=== PATIENT | male | born 1985 ===

== ENCOUNTER 2017-01-19 15:56 | Emergency (ER) | payer OTHER ==
[2017-01-19] MEDS ORDERED: Sodium Chloride 0.9% 1,000 ML IV SCH (17:15)
--- NOTE | 2017-01-19 17:30 | ED PDOC ---
HPI: Abdomen History Per: Patient (31 y male presents to ED complaining of abdominal pain for the past 3 weeks. Pt localizes pain to the epigastric region with radiation to the back, RUQ and often times lower quadrants. He reports that the pain occurs within minutes after eating and is associated with a sensation of fullness and [place]. He has had 2 episodes of non bloody non billous vomiting. He saw hs PMD 2 days ago and was given Famitidine that does not relieve his symptoms. Additionally he states, he has felt constipated. He denies: Fever, chills, anorexia, change in stool caliber, diarrhea, dysuria, frequency of urination, or back pain. ) Outside of [place] travel?: No <Ben Canchola - Last Filed: 01/19/17 18:57> <Teresita Ceballos - Last Filed: 01/19/17 19:07> Time Seen by Provider: 01/19/17 16:14 Chief Complaint (Nursing): Abdominal Pain Supervising Attending Note - Supervising Attending Note The Documented history was done by the: Physician Television Journalist The documented physical exam was done by the: Physician Television Journalist The documented procedures were done by the: Physician Television Journalist - Attestation: I have personally seen and examined this patient.: Yes I have fully participated in the care of the patient.: Yes I have reviewed all pertinent clinical information: Yes <Teresita Ceballos - Last Filed: 01/19/17 19:07> Past Medical History Reviewed: Historical Data, Nursing Documentation, Vital Signs - Medical History PMH: HTN Denies: Gastrointestinal Ulcer, Gall Bladder Disease, GERD - Surgical History Surgical History: No Surg Hx - Family History Family History: States: No Known Family Hx Other Family History: Uncle as DM; No Hx of Inflammatory Bowel Disease, Cancers , or Gallbladder disease - Living Arrangements Living Arrangements: With Family - Social History Current smoker - smoking cessation education provided: No Alcohol: None Drugs: Denies <Ben Canchola - Last Filed: 01/19/17 18:57> <Teresita Ceballos - Last Filed: 01/19/17 19:07> Vital Signs: Last Vital Signs Temp 97.7 F 01/19/17 15:59 Pulse 68 01/19/17 15:59 Resp 16 01/19/17 15:59 BP 137/83 01/19/17 15:59 Pulse Ox 99 01/19/17 18:58 - Allergies Allergies/Adverse Reactions: Allergies Allergy/AdvReac Type Severity Reaction Status Date / Time No Known Allergies Allergy Verified 01/19/17 15:59 Review of Systems ROS Statement: Except As Marked, All Systems Reviewed And Found Negative Constitutional: Negative for: Fever, Chills, Weight loss ENT: Negative for: Throat Pain Cardiovascular: Negative for: Chest Pain Respiratory: Negative for: Cough, Shortness of Breath Gastrointestinal: Positive for: Nausea, Vomiting, Abdominal Pain, Constipation. Negative for: Diarrhea, Melena, Hematochezia, Hematemesis Genitourinary Male: Positive for: Other (Tea-Colored urine). Negative for: Dysuria, Frequency, Incontinence Musculoskeletal: Negative for: Back Pain <Ben Canchola - Last Filed: 01/19/17 18:57> Physical Exam - Reviewed Nursing Documentation Reviewed: Yes Vital Signs Reviewed: Yes - Physical Exam Appears: Positive for: Well, Non-toxic, No Acute Distress Head Exam: Positive for: ATRAUMATIC, NORMAL INSPECTION, NORMOCEPHALIC Skin: Positive for: Normal Color, Warm, DRY Eye Exam: Positive for: EOMI, Normal appearance, PERRL ENT: Positive for: Normal ENT Inspection Neck: Positive for: Normal, Painless ROM Cardiovascular/Chest: Positive for: Regular Rate, Rhythm Respiratory: Positive for: CNT, Normal Breath Sounds Gastrointestinal/Abdominal: Positive for: Normal Exam, Bowel Sounds, Soft, Tenderness (Moderate tenderness to palpation in Epigastric and RUQ. Mild tenderness to palpation in lower quadrants. ), Other (Armenta's negative). Negative for: Organomegaly, Mass, Distended, Guarding, Rebound, Hernia Back: Positive for: Normal Inspection Extremity: Positive for: Normal ROM Neurologic/Psych: Positive for: Alert, Oriented <Ben Canchola - Last Filed: 01/19/17 18:57> - Laboratory Results Result Diagrams: 01/19/17 17:42 01/19/17 17:42 - ECG O2 Sat by Pulse Oximetry: 99 - Progress Re-evaluation Time: 18:24 (Pt seen lying in bed comfortably. No complaints) Condition: Re-examined <Ben Canchola - Last Filed: 01/19/17 18:57> - Laboratory Results Result Diagrams: 01/19/17 17:42 01/19/17 17:42 <Teresita Ceballos - Last Filed: 01/19/17 19:07> Medical Decision Making <Ben Canchola - Last Filed: 01/19/17 18:57> <Teresita Ceballos - Last Filed: 01/19/17 19:07> Medical Decision Makin y male with PMHx of HTN presents to ED complaining of a 3 week history of abdominal pain. ED Course: Famotidine 20mg IV x1 NS 100ml CBC, CMP, Lipase- NML ASO- ordered ESR UA RUQ US- increased echogenicity suggestive of hepatic steatosis (Ben Canchola) Disposition - Disposition Disposition: Routine/Home Disposition Time: 18:58 <Ben Canchola - Last Filed: 01/19/17 18:57> <Teresita Ceballos - Last Filed: 01/19/17 19:07> - Clinical Impression Clinical Impression: Gastritis - Disposition Referrals: Conner Nogueira MD [Medical Doctor] - Condition: STABLE Additional Instructions: continue with medicine prescribed by your doctor. Instructions: Gastritis (ED) Forms: [facility] (Telugu) Print Language: BENGALI
--- NOTE | 2017-01-19 17:41 | US ---
HISTORY: ruq tenderness ?murphys COMPARISON: None. TECHNIQUE: Sonographic evaluation of the abdomen. FINDINGS: LIVER: Measures 12.5 cm. There is diffuse increased echogenicity with heterogeneous echotexture of the liver parenchyma. No mass. No intrahepatic bile duct dilatation. GALLBLADDER: No gallstones, wall thickening or pericholecystic fluid. The sonographic Armenta's sign is negative. COMMON BILE DUCT: Measures 2.4 mm. No stones. No dilatation. PANCREAS: Unremarkable as visualized. No mass. No ductal dilatation. RIGHT KIDNEY: Measures 11.4cm. Normal echogenicity. No calculus, mass, or hydronephrosis. LEFT KIDNEY: Measures 10.1cm. Normal echogenicity. No calculus, mass, or hydronephrosis. SPLEEN: Normal in size and contour. No mass. AORTA: No aneurysmal dilatation. IVC: Unremarkable. OTHER FINDINGS: None. IMPRESSION: 1. Diffuse increased echogenicity in the liver may reflect hepatic steatosis however parenchymal infectious/ inflammatory etiologies cannot be entirely excluded. Clinical and laboratory correlation is advised. 2. No cholelithiasis or biliary dilatation.
[2017-01-19 17:48] LABS: BASO % 0.3 % (0.0-2.0); EOS # 0.2 K/uL (0.0-0.7); EOS % 3.3 % (0.0-4.0); HEMATOCRIT 46.3 % (35.0-51.0); LYMPH # 1.8 K/uL (1.0-4.3); LYMPH % 24.9 % (20.0-40.0); MEAN CELL VOLUME 83.3 fl (80.0-94.0); MEAN CORPUSCULAR HEMOGLOBIN 27.6 pg (27.0-31.0); MEAN CORPUSCULAR HGB CONC 33.2 g/dL (33.0-37.0); MEAN PLATELET VOLUME 10.2 fl (7.2-11.7); MONO # 0.6 K/uL (0.0-0.8); MONO % 7.8 % (0.0-10.0); NEUT # 4.5 K/uL (1.8-7.0); NEUT % 63.7 % (50.0-75.0); NRBC % 0.1 % (0.0-0.0); RED CELL DISTRIBUTION WIDTH 13.4 % (11.5-14.5); WHITE BLOOD COUNT 7.1 K/uL (4.8-10.8)
[2017-01-19 18:02] LABS: ALB/GLOB RATIO 1.3 (1.0-2.1); ALKALINE PHOSPHATASE 64 U/L (38-126); ALT/SGPT 34 U/L (21-72); AST/SGOT 28 U/L (17-59); BILIRUBIN,TOTAL 1.4 mg/dl (0.2-1.3); BLOOD UREA NITROGEN 19 mg/dl (9-20); CALCIUM 9.8 mg/dL (8.4-10.2); CARBON DIOXIDE 26 mmol/L (22-30); CHLORIDE 104 mmol/L (98-107); GFR AFRICAN-AMERICAN > 60; GLUCOSE,RANDOM 114 mg/dL (75-110); LIPASE 119 U/L (23-300); RBC URINE 3 /hpf (0-3); SODIUM 142 mmol/l (132-148); TOTAL PROTEIN 8.7 G/DL (6.3-8.2); URINE BACTERIA RARE (<OCC); URINE BILIRUBIN NEGATIVE (NEGATIVE); URINE BLOOD NEGATIVE (NEGATIVE); URINE COLOR YELLOW (YELLOW); URINE GLUCOSE (UA) NEG (Normal); URINE KETONE NEGATIVE (NEGATIVE); URINE LEUKOCYTE ESTERASE NEG Leu/uL (Negative); URINE PROTEIN NEGATIVE (NEGATIVE); WBC URINE 1 /hpf (0-5)
[2017-01-19 19:13] VITALS: BP 122/73; PULSE 80; RESP 20; TEMP 98.3; O2SAT 98
[2017-01-20 14:39] LABS: ASO TITER =>200 IU/ML (NEGATIVE)
== END 2017-01-19 19:13 | disposition home or self-care (01) ==
LOC: H.ER 15:56
DX: K29.70 Gastritis, unspecified, without bleeding (principal); I10 Essential (primary) hypertension
CPT/HCPCS: 76700; 80053; 81003; 83690; 85025; 85651; 86060; 96374; 99283; J7040

== ENCOUNTER 2017-01-26 18:15 | Observation (INO) | payer OTHER ==
[2017-01-26 18:47] VITALS: BP 136/81; PULSE 67; RESP 18; TEMP 98.2; O2SAT 99
[2017-01-26] MEDS ORDERED: Iohexol 240 (50 ml) PO ONE (19:14)
[2017-01-26] MEDS ORDERED: DiphenhydrAMINE 50 mg/ml Inj IVP STA (19:15)
[2017-01-26] MEDS ORDERED: DiphenhydrAMINE 50 mg/ml Inj ONE (19:29)
[2017-01-26] MEDS ORDERED: Iohexol 240 (50 ml) ONE (19:29)
--- NOTE | 2017-01-26 19:43 | ED PDOC ---
HPI: Abdomen Time Seen by Provider: 01/26/17 19:05 Chief Complaint (Nursing): Abdominal Pain Chief Complaint (Provider): Continued Abdominal Pain and New Rash History Per: Patient History/Exam Limitations: no limitations Outside of [place] travel?: No Current Symptoms Are (Timing): Still Present Additional Complaint(s): Jasmyn Sellers, a 31 year old male presents to the ED complaining of continued abdominal pain and a new rash. The patient states that he saw his PMD and was prescribed pepsid and he was also seen here in the ED but he still has occasional cramps in his lower abdomen. Patient does note some nausea but denies vomiting. He also complains of feeling weak and tired and states he aslo developed a rash but it is not itching. Denies fevers, chills, weight loss, changes in bowel/urinary habits. Past Medical History Reviewed: Historical Data, Nursing Documentation, Vital Signs Vital Signs: Last Vital Signs Temp 98.2 F 01/26/17 18:45 Pulse 67 01/26/17 18:45 Resp 18 01/26/17 18:45 BP 136/81 01/26/17 18:45 Pulse Ox 99 01/26/17 23:17 - Medical History PMH: HTN Denies: Gastrointestinal Ulcer, Gall Bladder Disease, GERD - Surgical History Surgical History: No Surg Hx - Family History Family History: States: Unknown Family Hx - Home Medications Home Medications: Ambulatory Orders Medication Instructions Recorded Ciprofloxacin [Cipro] 500 mg PO BID 7 Days 01/26/17 metroNIDAZOLE [Flagyl] 500 mg PO BID 7 Days 01/26/17 - Allergies Allergies/Adverse Reactions: Allergies Allergy/AdvReac Type Severity Reaction Status Date / Time No Known Allergies Allergy Verified 01/19/17 15:59 Review of Systems ROS Statement: Except As Marked, All Systems Reviewed And Found Negative Constitutional: Negative for: Fever, Chills, Weight loss Gastrointestinal: Positive for: Abdominal Pain Genitourinary Male: Negative for: Incontinence (urine/bladder) Skin: Positive for: Rash Physical Exam - Reviewed Nursing Documentation Reviewed: Yes Vital Signs Reviewed: Yes - Physical Exam Appears: Positive for: Non-toxic, No Acute Distress Head Exam: Positive for: ATRAUMATIC, NORMAL INSPECTION, NORMOCEPHALIC Skin: Positive for: Normal Color, Warm, Dry Eye Exam: Positive for: Normal appearance, EOMI, PERRL. Negative for: Nystagmus Neck: Positive for: Normal, Painless ROM, Supple Cardiovascular/Chest: Positive for: Regular Rate, Rhythm, Chest Non Tender. Negative for: Tachycardia Respiratory: Positive for: Normal Breath Sounds. Negative for: Rales, Rhonchi, Wheezing, Respiratory Distress Gastrointestinal/Abdominal: Positive for: Normal Exam, Bowel Sounds, Soft, Tenderness (epigastrium an suprapubic region mildly tender to palpation), Other (blanching erythematous patch across abdomen). Negative for: Guarding, Rebound Back: Positive for: Normal Inspection. Negative for: L CVA Tenderness, R CVA Tenderness Extremity: Positive for: Normal ROM. Negative for: Tenderness, Deformity, Swelling Neurologic/Psych: Positive for: Alert, Oriented, Gait - Laboratory Results Result Diagrams: 01/26/17 20:06 01/26/17 20:06 - ECG O2 Sat by Pulse Oximetry: 99 (RA) Pulse Ox Interpretation: Normal Medical Decision Making Medical Decision Makin initial Impression: Diverticulitis vs gastritis vs other abdominal pathologies Initial Plan: * CT ABD&PELV PO and IV Contrast * BMP * Lipase * LFT * CBC * Benadryl 50mg * Omnipaque 50ml PO * Zofran * Urine Culture * Urinalysis * Reevaluation Of note: Chart reviewed patient has positive ASO but there is no concerned for glomeruar nephritis at this time. Time: 2241 --CT ABD/pelvis FINDINGS: Lower thorax: The bilateral lung bases are clear. ABDOMEN: Liver: No acute findings. Gallbladder and bile ducts: The gallbladder is minimally distended, without calcified stones. No significant intra- or extrahepatic biliary ductal dilation. Pancreas: Enhances homogeneously. No ductal dilation. No discrete mass. Spleen: No acute findings. Adrenals: No acute findings. Kidneys and ureters: No acute findings. No hydronephrosis or renal calculi. No discrete solid mass. PELVIS: Bladder: No acute findings. Reproductive: No acute findings. Appendix: The air filled appendix is of normal caliber (series 3, image 74; series 601, image 56) . ABDOMEN and PELVIS: Stomach and bowel: Oral contrast extends to the distal small bowel, without obstruction. Small bowel wall thickening within the left upper quadrant but no surrounding inflammation or fluid to confirm an acute enteritis. Peritoneum: As above. Lymph nodes: No pathologically enlarged lymph nodes. Vasculature: Unremarkable. Bones: No acute fracture. IMPRESSION: Mural thickening within multiple loops of small bowel without surrounding inflammation or fluid to confirm an acute enteritis. Time: 2300 Upon provider reevaluation patient is medically stable and requires no further treatment in the ED at this time. Patient will be discharged home. Counseling was provided and all questions were answered regarding diagnosis and need for follow up with PCP. There is agreement to discharge plan. Return if symptoms persist or worsen. Clinical Impression: Enteritis __ Scribe Attestation Documented by Meghna Farnsworth acting as a scribe for Karly Garrett MD. Provider Attestation All medical record entries made by the Scribe were at my direction and personally dictated by me. I have reviewed the chart and agree that the record accurately reflects my personal performance of the history, physical exam, medical decision making, and the department course for this patient. I have also personally directed, reviewed, and agree with the discharge instructions and disposition. Disposition - Clinical Impression Clinical Impression: Enteritis - Patient ED Disposition Is Patient to be Admitted: No Counseled Patient/Family Regarding: Studies Performed, Diagnosis - Disposition Disposition: Routine/Home Disposition Time: 23:00 Condition: STABLE
[2017-01-26 20:19] LABS: BASO % 0.1 % (0.0-2.0); EOS % 0.1 % (0.0-4.0); LYMPH # 0.6 K/uL (1.0-4.3); LYMPH % 5.9 % (20.0-40.0); MEAN CELL VOLUME 82.9 fl (80.0-94.0); MEAN CORPUSCULAR HEMOGLOBIN 27.1 pg (27.0-31.0); MEAN CORPUSCULAR HGB CONC 32.7 g/dL (33.0-37.0); MEAN PLATELET VOLUME 10.5 fl (7.2-11.7); MONO # 0.1 K/uL (0.0-0.8); MONO % 1.1 % (0.0-10.0); NEUT # 10.1 K/uL (1.8-7.0); NEUT % 92.8 % (50.0-75.0); NRBC % 0.3 % (0.0-0.0); PLATELET COUNT 191 K/uL (130-400); RED CELL DISTRIBUTION WIDTH 13.2 % (11.5-14.5); WHITE BLOOD COUNT 10.9 K/uL (4.8-10.8)
[2017-01-26 20:34] LABS: ALKALINE PHOSPHATASE 76 U/L (38-126); ALT/SGPT 33 U/L (21-72); AST/SGOT 30 U/L (17-59); BILIRUBIN,TOTAL 1.4 mg/dl (0.2-1.3); BLOOD UREA NITROGEN 17 mg/dl (9-20); CALCIUM 9.9 mg/dL (8.4-10.2); CARBON DIOXIDE 23 mmol/L (22-30); CHLORIDE 104 mmol/L (98-107); GFR AFRICAN-AMERICAN > 60; GLUCOSE,RANDOM 126 mg/dL (75-110); LIPASE 70 U/L (23-300); SODIUM 141 mmol/l (132-148); TOTAL PROTEIN 9.2 G/DL (6.3-8.2)
[2017-01-26 20:35] LABS: ALB/GLOB RATIO 1.2 (1.0-2.1)
[2017-01-26] MEDS ORDERED: Iohexol 300 100 ML IJ ONE (20:51)
[2017-01-26] MEDS ORDERED: Sodium Chloride 0.9% 50 ML IV ONE (20:52)
[2017-01-26 21:59] LABS: NEUTROPHIL 91 % (42-75); TOTAL CELLS COUNTED 100
[2017-01-26 22:15] LABS: RBC URINE 1 /hpf (0-3); URINE BILIRUBIN NEGATIVE (NEGATIVE); URINE BLOOD NEGATIVE (NEGATIVE); URINE COLOR YELLOW (YELLOW); URINE GLUCOSE (UA) NEG (Normal); URINE KETONE 20 mg/dL (NEGATIVE); URINE LEUKOCYTE ESTERASE NEG Leu/uL (Negative); URINE PROTEIN NEGATIVE (NEGATIVE); URINE UROBILINOGEN 0.2-1.0 mg/dL (0.2-1.0); WBC URINE < 1 /hpf (0-5)
--- NOTE | 2017-01-26 22:42 | CT ---
EXAM: CT Abdomen and Pelvis With Intravenous Contrast CLINICAL HISTORY: 31 years old, male; Pain; Abdominal pain; Generalized; Additional info: Epig and lower abd pain. Sent phy. Doc. TECHNIQUE: Axial computed tomography images of the abdomen and pelvis with intravenous contrast. All CT scans at this facility use one or more dose reduction techniques, viz.: automated exposure control; ma/kV adjustment per patient size (including targeted exams where dose is matched to indication; i.e. head); or iterative reconstruction technique. Coronal and sagittal reformatted images were created and reviewed. CONTRAST: 95 mL of [id number] administered intravenously. COMPARISON: No relevant prior studies available. FINDINGS: Lower thorax: The bilateral lung bases are clear. ABDOMEN: Liver: No acute findings. Gallbladder and bile ducts: The gallbladder is minimally distended, without calcified stones. No significant intra- or extrahepatic biliary ductal dilation. Pancreas: Enhances homogeneously. No ductal dilation. No discrete mass. Spleen: No acute findings. Adrenals: No acute findings. Kidneys and ureters: No acute findings. No hydronephrosis or renal calculi. No discrete solid mass. PELVIS: Bladder: No acute findings. Reproductive: No acute findings. Appendix: The air filled appendix is of normal caliber (series 3, image 74; series 601, image 56) . ABDOMEN and PELVIS: Stomach and bowel: Oral contrast extends to the distal small bowel, without obstruction. Small bowel wall thickening within the left upper quadrant but no surrounding inflammation or fluid to confirm an acute enteritis. Peritoneum: As above. Lymph nodes: No pathologically enlarged lymph nodes. Vasculature: Unremarkable. Bones: No acute fracture. IMPRESSION: Mural thickening within multiple loops of small bowel without surrounding inflammation or fluid to confirm an acute enteritis.
== END 2017-01-26 23:29 | disposition home or self-care (01) ==
LOC: H.ER 18:15 → H.EROBSV 19:15
PROVIDERS: ADMIT Emergency Medicine; ATTEND Emergency Medicine
DX: K52.9 Noninfective gastroenteritis and colitis, unspecified (principal); I10 Essential (primary) hypertension
CPT/HCPCS: 36415; 74177; 80048; 80076; 81003; 83690; 85025; 87086; 96374; 96375; 99283; G0378; J1200; J2405; J2930; Q9966; Q9967